=== PATIENT | male | born 1940 | race African-American/Black ===

== ENCOUNTER 2016-08-10 09:39 | Inpatient (IN) | payer OTHER, MEDICARE ==
[~2016-08-10] VITALS: Ht 188 cm; Wt 73.1 kg
[~2016-08-10 09:39] MED LIST: CLON.2 PO; COZA50TA PO; LORT10TA PO; NITR.4 SL; NORV10TA PO; SENN1TAB11 PO; [UNRECOGNIZED DRUG - CODE] XX
[2016-08-10 09:47] VITALS: BP 258/129; PULSE 78; RESP 28; TEMP 99.5; O2SAT 99
[2016-08-10] MEDS ORDERED: COZA50TA PO (09:55)
[2016-08-10] MEDS ORDERED: HYDR-3533 PO (09:55)
[2016-08-10] MEDS ORDERED: SENN1TAB2 PO (09:55)
[2016-08-10] MEDS ORDERED: CLON0.2T PO (09:55)
[2016-08-10] MEDS ORDERED: AMLO10 PO (09:55)
[2016-08-10] MEDS ORDERED: NITR1SUB3 SL (09:55)
[2016-08-10] MEDS ORDERED: MORPHINE SULFATE 4 MG/ML INJ IV PUSH ONE ×2 (10:30→12:15)
[2016-08-10] MEDS ORDERED: ONDANSETRON HCL 4 MG/2 ML VIAL IV PUSH ONE ×2 (10:30→12:00)
[2016-08-10] MEDS ORDERED: SODIUM CHLORIDE 0.9% FLUSH 5 ML FLUSH IVF PRN ×2 (10:30→19:30)
[2016-08-10 10:58] LABS: AUTOMATED NEUTROPHIL # 5.6 TH/MM3 (1.8-7.7); BASOPHIL % 0.5 % (0.0-2.0); EOSINOPHIL % 0.1 % (0.0-4.0); HEMATOCRIT 39.1 % (39.0-51.0); LYMPH % 5.8 % (9.0-44.0); LYMPHOCYTE # 0.4 TH/MM3 (1.0-4.8); MEAN CELL VOLUME 77.4 FL (80.0-100.0); MEAN CORPUSCULAR HEMOGLOBIN 25.7 PG (27.0-34.0); MEAN CORPUSCULAR HGB CONC 33.2 % (32.0-36.0); MONO % 3.9 % (0.0-8.0); NEUT % 89.7 % (16.0-70.0); PLATELET COUNT 174 TH/MM3 (150-450); RED BLOOD COUNT 5.06 MIL/MM3 (4.50-5.90); RED CELL DISTRIBUTION WIDTH 17.9 % (11.6-17.2); WHITE BLOOD COUNT 6.2 TH/MM3 (4.0-11.0)
[2016-08-10 10:59] LABS: HEMO FLAGS DIFF FINAL
[2016-08-10 11:10] LABS: APTT (PATIENT) 29.3 SEC (24.3-30.1); PROTHROMBIN TIME - PATIENT 10.6 SEC (9.8-11.6)
[2016-08-10 11:16] LABS: ANION GAP 8 MEQ/L (5-15); BICARBONATE 28.8 MEQ/L (21.0-32.0); BLOOD UREA NITROGEN 15 MG/DL (7-18); CHLORIDE 101 MEQ/L (98-107); GLOMERULAR FILTRATION RATE 53 ML/MIN (>89); MAGNESIUM 2.4 MG/DL (1.5-2.5); POTASSIUM 3.7 MEQ/L (3.5-5.1); SODIUM (NA) 138 MEQ/L (136-145)
[2016-08-10 11:21] LABS: CREATINE KINASE 117 U/L (39-308)
[2016-08-10 11:33] LABS: CKMB LESS THAN 0.5 NG/ML (0.5-3.6)
[2016-08-10 11:37] LABS: BLOOD, URINE SMALL (NEG); GLUCOSE,URINE TRACE mg/dL (NEG); KETONE, URINE NEG (NEG); NITRITE,URINE NEG (NEG); URINE COLOR LIGHT-YELLOW (YELLW/STRAW)
[2016-08-10 11:43] LABS: COMMENT (UR) CULT NOT INDICATED; CULTURE IF INDICATED CULT NOT INDICATED
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
[2016-08-10] MEDS ORDERED: PHENYLEPH/NS 1000 MCG/10 ML SYR IV ONE (12:00)
[2016-08-10] MEDS ORDERED: PROPOFOL 200 MG/20 ML AMP IV ONE (12:00)
[2016-08-10] MEDS ORDERED: LACTATED RINGER'S 1000 ML INJ 2,000 ML IV ONE (12:00)
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
[2016-08-10] MEDS ORDERED: SODIUM CHLOR 0.9% 1000 ML INJ 1,000 ML IV ONE (12:15)
[2016-08-10] MEDS ORDERED: ACETAMINOPHEN/HYDROcodone 325 MG/5 MG TAB PO PRN ×2 (12:30→19:30)
[2016-08-10] MEDS ORDERED: SODIUM CHLORIDE 0.9% FLUSH 5 ML FLUSH FLUSH PRN (12:30)
[2016-08-10] MEDS ORDERED: NALOXONE HCL 0.4 MG/ML AMP IV PRN (12:30)
[2016-08-10] MEDS ORDERED: MORPHINE SULFATE 4 MG/ML INJ IV PRN ×2 (12:30)
[2016-08-10] MEDS ORDERED: ACETAMINOPHEN 325 MG TAB PO PRN ×3 (12:30→19:30)
[2016-08-10] MEDS ORDERED: ACETAMINOPHEN/HYDROcodone 325 MG/7.5 MG TAB PO PRN (12:30)
[2016-08-10] MEDS: cloNIDine HCL 0.2 MG TAB PO SCH ×2 (12:56→22:15)
[2016-08-10] MEDS ORDERED: BISACODYL 10 MG SUPP PR PRN ×2 (13:00→19:30)
[2016-08-10] MEDS ORDERED: MAGNESIUM HYDROXIDE SUSP 30 ML CUP PO PRN (13:00)
[2016-08-10] MEDS ORDERED: SENNOSIDES 8.6 MG TAB PO PRN (13:00)
[2016-08-10] MEDS ORDERED: hydrALAZINE HCL 20 MG/ML VIAL IV PUSH PRN (13:00)
[2016-08-10] MEDS ORDERED: LOSARTAN 50 MG TAB PO SCH (13:00)
[2016-08-10] MEDS ORDERED: DOCUSATE SODIUM 100 MG CAP PO SCH (13:00)
[2016-08-10 13:04] VITALS: BP 239/129; PULSE 84; RESP 16; O2SAT 100
[2016-08-10] MEDS ORDERED: SODIUM CHLORIDE 0.9% IV SCH (14:30)
[2016-08-10] MEDS ORDERED: CLINDAMYCIN IV SCH (14:30)
[2016-08-10] MEDS ORDERED: VANCOMYCIN INJ 1,000 MG in SODIUM CHLOR 0.9% 250 ML INJ 250 ML IV SCH (14:30)
[2016-08-10 15:12] VITALS: O2SAT 100
[2016-08-10] MEDS ORDERED: CLINDAMYCIN PHOS 600 MG/4 ML VIAL ONE (15:41)
[2016-08-10] MEDS ORDERED: GENTAMICIN SULFATE 80 MG/2 ML VIAL ONE (15:41)
[2016-08-10] MEDS ORDERED: ONDANSETRON HCL 4 MG/2 ML VIAL IVP PRN ×2 (17:00→19:30)
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
--- NOTE | 2016-08-10 19:18 | PD.OP ---
cc: Estrada Nina MD Operative Report Date of Surgery: Aug 10, 2016 Preoperative Diagnosis: (1) Fracture of femoral neck, right Postoperative Diagnosis: (1) Fracture of femoral neck, right Procedure: Right bipolar hip arthroplasty Implants used: Depuy size 12/14 press fit femoral stem with a 54 bipolar cup and a standard neck length Anesthesia: Gen. Surgeon: Estrada Nina Marine Mechanic(s): Marilee Akhtar PA-C ([place]) The surgical procedure was assisted by my physician's events administrative assistant. Her presence was necessary throughout the case for manipulation and positioning of the surgical extremity. My PA was assisting me throughout the duration of this procedure. The skill set of the physician events administrative assistant was medically necessary to complete this procedure. During the surgical case the surgical instrument maker was working at the back table and the physician events administrative assistant was directly assisting me. Operation and Findings: Indications: This 76-year-old male fell injuring his right hip. The patient had pain and inability ambulate. He presented to [facility]. X-rays revealed a displaced right femoral neck fracture. Recommendations are therefore given for prosthetic replacement. Procedure and findings: The patient was taken to the operative suite and after undergoing an adequate level of general anesthesia was placed in the lateral decubitus position. Preoperative antibiotics consisted of vancomycin 1 g IV and clindamycin 900 mg IV. The right lower extremity was then prepped and draped in usual sterile fashion with alcohol, Hibiclens and ChloraPrep. A standard posterior lateral approach to the hip was made with incision centered over the greater trochanter. This was carried down through skin and subcutaneous tense tissue with a knife. Hemostasis was obtained with cautery. The iliotibial band was identified distally and the gluteus lupe fascia proximally. These were split longitudinally. This brought the greater trochanteric bursa into view which had hemorrhagic tissue present. The bursa was partially excised. The short external rotators were released from the posterior aspect of the femur up to the level of the piriformis. This was tagged. The sciatic nerve was palpable in the depths of the wound and avoided. A T capsulotomy incision was made. A joint hemarthrosis was evacuated. There was comminution of the femoral neck. The femoral head was removed and sized on the back table to a 54. A 54 trial was placed which gave good fit and fill. Attention was then focused on the proximal femur. A neck cut was made. The femur was then sequentially reamed and broached up to a size 12/14. With the broach in place trial reductions were completed. The standard neck length gave the best range of motion and stability with equalization of limb lengths. These components were therefore selected. The wound was thoroughly irrigated with pulse lavage. The size 12/14 stem was then impacted in the place. The 54 bipolar cup was then impacted onto the proximal aspect of the stem with a Fair taper fit. Reduction was easily accomplished and good range of motion and stability again noted. The wound was again thoroughly irrigated. Was closed in layers utilizing #1 Tycron on the posterior capsule, #1 Vicryl on the iliotibial band and gluteal lupe fascia, 0 Vicryl suture on the deep tissue, 2-0 Vicryl suture on the subcutaneous tense tissue and brea on the skin. Sterile dressings were applied, the patient was placed into an abduction pillow , transferred to the hospital bed and taken to the recovery room in stable condition. Estimated blood loss: 150 cc Complications: None Estrada Nina MD Aug 10, 2016 19:18
[2016-08-10] MEDS ORDERED: TEMAZEPAM 15 MG CAP PO PRN (19:30)
[2016-08-10] MEDS ORDERED: Post-op Orders (for Pharmacy) MISC XX ONE (19:30)
[2016-08-10] MEDS ORDERED: POVIDONE IODINE 10% SOLN 118 ML BOTTLE TOPICAL PRN (19:30)
[2016-08-10] MEDS ORDERED: ALUMINUM/MAGNESIUM/SIMETH 30 ML CUP PO PRN (19:30)
[2016-08-10] MEDS ORDERED: DO NOT ADM ANY ANTICOAGULANT DRUGS XX PRN (19:36)
[2016-08-10] MEDS ORDERED: fentaNYL CITRATE 250 MCG/5 ML AMP ONE (19:42)
[2016-08-10] MEDS: LACTATED RINGER'S 1000 ML INJ 1,000 ML IV SCH (19:45)
[2016-08-10] MEDS ORDERED: ENALAPRILAT 1.25 MG/ML VIAL ONE (19:47)
--- NOTE | 2016-08-10 20:50 | RADRPT ---
EXAM DATE/TIME: 08/10/2016 19:48 [facility] COMPARISON: No previous studies available for comparison. INDICATIONS : Post op right hip. MEDICAL HISTORY : None. SURGICAL HISTORY : None. ENCOUNTER: Initial ACUITY: 1 day PAIN SCORE: Non-responsive. LOCATION: Right hip. FINDINGS: AP right hip reveals hip replacement. Skin brea laterally. Air in soft tissues. No complications i dentified. CONCLUSION: 1. Postoperative right total hip replacement. Robby Yo MD on August 10, 2016 at 20:48 Board Certified Radiologist. This report was verified electronically.
[2016-08-10] MEDS ORDERED: SODIUM CHLORIDE 0.9% FLUSH 5 ML FLUSH FLUSH SCH (21:00)
[2016-08-10] MEDS: CLINDAMYCIN INJ 900 MG in SODIUM CHLORIDE 0.9% INJ 100 ML IV SCH (21:10)
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
[2016-08-10 22:00] VITALS: BP 164/90; PULSE 62; RESP 17; TEMP 97.3; O2SAT 100
[2016-08-10] MEDS: MORPHINE SULFATE 8 MG/ML INJ IV PUSH PRN (22:21)
[2016-08-10] MEDS: SODIUM CHLORIDE 0.9% FLUSH 5 ML FLUSH IVF SCH (22:22)
[2016-08-11] VITALS (8 sets, daily range): BP systolic 104–170; BP diastolic 62–82; PULSE 71–73; RESP 16–18; TEMP 97.5–101.2; O2SAT 98–100
[2016-08-11] MEDS: LACTATED RINGER'S 1000 ML INJ 1,000 ML IV SCH ×3 (05:07→23:48)
[2016-08-11] MEDS: ACETAMINOPHEN/HYDROcodone 325 MG/5 MG TAB PO PRN ×2 (05:09→09:38)
[2016-08-11] MEDS: CLINDAMYCIN INJ 900 MG in SODIUM CHLORIDE 0.9% INJ 100 ML IV SCH ×2 (05:10→12:30)
[2016-08-11 05:13] LABS: AUTOMATED NEUTROPHIL # 4.2 TH/MM3 (1.8-7.7); BASOPHIL % 0.5 % (0.0-2.0); EOSINOPHIL # 0.1 TH/MM3 (0-0.4); EOSINOPHIL % 1.3 % (0.0-4.0); HEMO FLAGS DIFF FINAL; LYMPH % 10.6 % (9.0-44.0); LYMPHOCYTE # 0.6 TH/MM3 (1.0-4.8); MEAN CORPUSCULAR HEMOGLOBIN 25.6 PG (27.0-34.0); MEAN CORPUSCULAR HGB CONC 32.8 % (32.0-36.0); MONO % 8.9 % (0.0-8.0); NEUT % 78.7 % (16.0-70.0); PLATELET COUNT 114 TH/MM3 (150-450); RED BLOOD COUNT 3.85 MIL/MM3 (4.50-5.90); RED CELL DISTRIBUTION WIDTH 17.9 % (11.6-17.2); WHITE BLOOD COUNT 5.3 TH/MM3 (4.0-11.0)
[2016-08-11 05:53] LABS: BICARBONATE 23.5 MEQ/L (21.0-32.0); POTASSIUM 3.7 MEQ/L (3.5-5.1)
[2016-08-11] MEDS: SODIUM CHLORIDE 0.9% FLUSH 5 ML FLUSH IVF SCH ×2 (09:00→23:39)
[2016-08-11] MEDS: cloNIDine HCL 0.2 MG TAB PO SCH ×2 (09:37→23:47)
[2016-08-11] MEDS: MAGNESIUM HYDROXIDE SUSP 30 ML CUP PO PRN (09:43)
[2016-08-11] MEDS ORDERED: ENOXAPARIN SODIUM 40 MG/0.4 ML SYRINGE SQ SCH (10:00)
--- NOTE | 2016-08-11 12:40 | PD.ORT.PN ---
Subjective Post Op Day #: 1 Subjective Remarks Pt laying comfortably in bed, awake and answering questions appropriately. He complains of minimal right hip pain and admits he had a good night sleep. No other complaints noted at this time. No family at bedside this morning. Objective Vitals Vital Signs Date Time Temp Pulse Resp B/P Pulse Ox O2 Delivery O2 Flow Rate FiO2 08/11/16 08:00 100.7 73 18 149/78 99 08/11/16 05:00 100.8 154/72 08/11/16 04:00 101.2 73 18 170/82 98 08/10/16 22:00 97.3 62 17 164/90 100 08/10/16 21:15 58 15 146/89 99 Nasal Cannula 2 08/10/16 21:00 98.1 58 16 145/57 98 Nasal Cannula 2 08/10/16 20:45 55 16 136/76 97 Nasal Cannula 2 08/10/16 20:30 57 12 150/88 97 Nasal Cannula 2 08/10/16 20:15 56 12 152/91 97 Nasal Cannula 2 08/10/16 20:00 60 14 155/97 98 Nasal Cannula 2 08/10/16 19:45 65 16 189/103 98 Nasal Cannula 3 08/10/16 19:34 97.3 60 14 171/97 96 Nasal Cannula 3 08/10/16 15:12 100 21 08/10/16 13:04 84 16 239/129 100 I/O 08/10/16 08/10/16 08/10/16 08/11/16 08/11/16 08/11/16 07:00 15:00 23:00 07:00 15:00 23:00 Intake Total 1400 ml 240 ml Output Total 400 ml 450 ml Balance 1000 ml -210 ml Intake Oral 240 ml IV Total 100 ml Other 1300 ml Output Urine Total 200 ml 450 ml Estimated Blood Loss 200 ml # Bowel Movements 0 Result Diagram: 08/11/16 0444 08/11/16 0444 Imaging Last 48 hours Impressions Chest X-Ray 08/10/16 1024 Signed Impressions: Service Date/Time: Wednesday, August 10, 2016 11:06 - CONCLUSION: Thoracic stent graft in good position, otherwise negative. Deniz Mccann MD FACR Hip and Pelvis X-Ray 08/10/16 0000 Signed Impressions: Service Date/Time: Wednesday, August 10, 2016 11:06 - CONCLUSION: Basal cervical fracture right femoral neck. Deniz Mccann MD FACR Hip X-Ray 08/10/16 0000 Signed Impressions: Service Date/Time: Wednesday, August 10, 2016 19:48 - CONCLUSION: 1. Postoperative right total hip replacement. Robby Yo MD Procedures Right bipolar hip arthroplasty (08/10/16) Objective Remarks RLE: Dressing dry and intact. Mild tenderness and swelling over incision site. No erythema or ecchymosis noted. Skin is warm. He is able to move his ankle and toes freely. Good cap refill. No calf pain. Negative Familia's sign. Neurovascular intact. Abductor pillow in place. Assessment & Plan Ortho Post Op Day #: 1 Problem List: (1) Fracture of femoral neck, right (2) Hypertension (3) Thoracic aortic aneurysm Assessment and Plan Ortho status stable POD #1. Progress rehab. Continue Lovenox for DVT prophylaxis , pain management and bowel regimen. Discharge planning. Marilee Akhtar Aug 11, 2016 12:40
--- NOTE | 2016-08-11 14:08 | HHI.PR ---
Subjective Remarks Mr. 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 no dysuria or abdominal pain diarrhea or constipation or cough Objective Vitals Vital Signs Date Time Temp Pulse Resp B/P Pulse Ox O2 Delivery O2 Flow Rate FiO2 08/11/16 12:00 97.8 71 18 104/64 100 08/11/16 08:00 100.7 73 18 149/78 99 08/11/16 05:00 100.8 154/72 08/11/16 04:00 101.2 73 18 170/82 98 08/10/16 22:00 97.3 62 17 164/90 100 08/10/16 21:15 58 15 146/89 99 Nasal Cannula 2 08/10/16 21:00 98.1 58 16 145/57 98 Nasal Cannula 2 08/10/16 20:45 55 16 136/76 97 Nasal Cannula 2 08/10/16 20:30 57 12 150/88 97 Nasal Cannula 2 08/10/16 20:15 56 12 152/91 97 Nasal Cannula 2 08/10/16 20:00 60 14 155/97 98 Nasal Cannula 2 08/10/16 19:45 65 16 189/103 98 Nasal Cannula 3 08/10/16 19:34 97.3 60 14 171/97 96 Nasal Cannula 3 08/10/16 15:12 100 21 I/O 08/10/16 08/10/16 08/10/16 08/11/16 08/11/16 08/11/16 07:00 15:00 23:00 07:00 15:00 23:00 Intake Total 1400 ml 240 ml Output Total 400 ml 450 ml Balance 1000 ml -210 ml Intake Oral 240 ml IV Total 100 ml Other 1300 ml Output Urine Total 200 ml 450 ml Estimated Blood Loss 200 ml # Bowel Movements 0 Result Diagram: 08/11/16 0444 08/11/16 0444 Imaging Last Impressions Chest X-Ray 08/10/16 1024 Signed Impressions: Service Date/Time: Wednesday, August 10, 2016 11:06 - CONCLUSION: Thoracic stent graft in good position, otherwise negative. Deniz Mccann MD FACR Hip and Pelvis X-Ray 08/10/16 0000 Signed Impressions: Service Date/Time: Wednesday, August 10, 2016 11:06 - CONCLUSION: Basal cervical fracture right femoral neck. Deniz Mccann MD FACR Hip X-Ray 08/10/16 0000 Signed Impressions: Service Date/Time: Wednesday, August 10, 2016 19:48 - CONCLUSION: 1. Postoperative right total hip replacement. Robby Yo MD Objective Remarks GENERAL: This is a well-nourished, well-developed patient, in no apparent distress. SKIN: No rashes, warm and dry HEAD: Atraumatic. Normocephalic. EYES: Pupils equal round and reactive. Extraocular motions intact. No scleral icterus. ENT: Nose without bleeding, or drainage, Airway patent. NECK: Trachea midline. Supple CARDIOVASCULAR: Regular rate and rhythm without murmurs, gallops, or rubs. RESPIRATORY: Fair air entry bilaterally. No wheezes, rales, or rhonchi. GASTROINTESTINAL: Abdomen soft, non-tender, nondistended. Positive bowel sounds MUSCULOSKELETAL: Extremities without clubbing, cyanosis, or edema. Pedal pulses appreciated NEUROLOGICAL: Awake and alert. Moves all extremity. Normal speech.no focal neurological deficit A/P Problem List: (1) Fracture of femoral neck, right ICD Code: S72.001A Status: Acute Assessment and Plan 76 years old male with history of hypertension and aortic aneurysm repair in the past admitted with -Fracture of the right femoral neck status post fall: Start on pain management, orthopedic consulted, status post surgical repair, postop management per protocol, DVT prophylaxis with Lovenox -Acute anemia hemoglobin dropped from 13-9.9>> mostly post op, repeat H&H in a.m. -Spiking fever 101.2 last night>> mostly post op, no dysuria or cough or other sign of infection, will continue monitoring -Uncontrolled hypertension: Hold losartan due to MECCA, continue amlodipine, add clonidine, hydralazine as needed -I MECCA versus CKD: Creatinine decreased from 1.56-1.47 Hold losartan, avoid nephrotoxins, continue iv fluid, monitor BMP Nash Pratt MD Aug 11, 2016 14:08
[2016-08-11] MEDS: ENOXAPARIN SODIUM 40 MG/0.4 ML SYRINGE SQ SCH (17:58)
[2016-08-11] MEDS: MORPHINE SULFATE 8 MG/ML INJ IV PUSH PRN (23:38)
[2016-08-11] MEDS: MULTIVITAMINS/MINERALS THERAPEUTIC TAB PO SCH (23:47)
[2016-08-11] MEDS: DOCUSATE SODIUM 100 MG CAP PO SCH (23:47)
[2016-08-12] VITALS (7 sets, daily range): BP systolic 122–160; BP diastolic 66–81; PULSE 62–67; RESP 16–18; TEMP 96.4–99.9; O2SAT 95–100
[2016-08-12] MEDS: MORPHINE SULFATE 8 MG/ML INJ IV PUSH PRN ×2 (06:30→16:35)
--- NOTE | 2016-08-12 07:31 | PD.ORT.PN ---
Subjective Post Op Day #: 2 Pain Scale: 4 Subjective Remarks The patient is awake alert and answers questions appropriately. He currently is not in the abduction pillow and his leg is internally rotated and slightly abducted. He is complaining of knee pain. He has minimal hip discomfort. Objective Vitals Vital Signs Date Time Temp Pulse Resp B/P Pulse Ox O2 Delivery O2 Flow Rate FiO2 08/12/16 04:00 99.9 63 16 142/72 95 08/12/16 00:00 99.5 63 16 124/67 99 08/11/16 19:12 99.2 73 16 109/62 08/11/16 16:14 97.5 71 16 130/68 99 08/11/16 15:20 99 21 08/11/16 12:00 97.8 71 18 104/64 100 08/11/16 10:30 99 Nasal Cannula 21 08/11/16 08:00 100.7 73 18 149/78 99 I/O 08/11/16 08/11/16 08/11/16 08/12/16 08/12/16 08/12/16 07:00 15:00 23:00 07:00 15:00 23:00 Intake Total 240 ml 676 ml 240 ml 240 ml Output Total 450 ml 250 ml Balance -210 ml 676 ml 240 ml -10 ml Intake Oral 240 ml 240 ml 240 ml IV Total 676 ml Output Urine Total 450 ml 250 ml Bladder Scan Volume Amount 30 ml # Voids 0 # Bowel Movements 0 0 0 Result Diagram: 08/11/16 0444 08/11/16 0444 Imaging Last 48 hours Impressions Chest X-Ray 08/10/16 1024 Signed Impressions: Service Date/Time: Wednesday, August 10, 2016 11:06 - CONCLUSION: Thoracic stent graft in good position, otherwise negative. Deniz Mccann MD FACR Hip and Pelvis X-Ray 08/10/16 0000 Signed Impressions: Service Date/Time: Wednesday, August 10, 2016 11:06 - CONCLUSION: Basal cervical fracture right femoral neck. Deniz Mccann MD FACR Hip X-Ray 08/10/16 0000 Signed Impressions: Service Date/Time: Wednesday, August 10, 2016 19:48 - CONCLUSION: 1. Postoperative right total hip replacement. Robby Yo MD Procedures Right bipolar hip arthroplasty (08/10/16) Objective Remarks RLE: Dressing dry and intact. Mild tenderness and swelling over incision site. No erythema or ecchymosis noted. Skin is warm. He is able to move his ankle and toes freely. Good cap refill. No calf pain. Negative Familia's sign. The right lower extremity was passively placed back in neutral position. His leg lengths were equal. He has a moderate knee effusion. This was noted preoperatively. Neurovascular intact. Assessment & Plan Ortho Post Op Day #: 2 Problem List: (1) Fracture of femoral neck, right (2) Hypertension (3) Thoracic aortic aneurysm Assessment and Plan Ortho status stable POD #2. Progress rehab. Continue Lovenox for DVT prophylaxis , pain management and bowel regimen. Should be ready for discharge to rehabilitation tomorrow. Estrada Nina MD Aug 12, 2016 07:31
[2016-08-12] MEDS ORDERED: ENOX40P SQ (07:32)
[2016-08-12] MEDS ORDERED: HYDR-3516 PO (07:33)
[2016-08-12] MEDS ORDERED: WALKER WHEELS/F1 MIS (07:47)
[2016-08-12] MEDS ORDERED: MISC-163 (07:47)
[2016-08-12 08:30] LABS: HEMATOCRIT 26.1 % (39.0-51.0); REVIEW FLAG FINAL
[2016-08-12] MEDS: DOCUSATE SODIUM 100 MG CAP PO SCH ×2 (08:43→22:26)
[2016-08-12] MEDS: MAGNESIUM HYDROXIDE SUSP 30 ML CUP PO PRN (08:43)
[2016-08-12] MEDS: MULTIVITAMINS/MINERALS THERAPEUTIC TAB PO SCH ×2 (08:43→22:26)
[2016-08-12] MEDS: cloNIDine HCL 0.2 MG TAB PO SCH ×2 (08:43→22:26)
[2016-08-12] MEDS: ACETAMINOPHEN/HYDROcodone 325 MG/5 MG TAB PO PRN ×3 (08:47→22:27)
[2016-08-12] MEDS: SODIUM CHLORIDE 0.9% FLUSH 5 ML FLUSH IVF SCH ×2 (09:00→22:27)
[2016-08-12] MEDS: LACTATED RINGER'S 1000 ML INJ 1,000 ML IV SCH ×2 (11:18→21:18)
--- NOTE | 2016-08-12 15:10 | HHI.PR ---
Subjective Remarks patient doing well with physical therapy No fever last 24 hours Objective Vitals Vital Signs Date Time Temp Pulse Resp B/P Pulse Ox O2 Delivery O2 Flow Rate FiO2 08/12/16 12:00 96.4 67 18 127/69 99 08/12/16 08:00 99.5 65 18 160/79 100 08/12/16 04:00 99.9 63 16 142/72 95 08/12/16 00:00 99.5 63 16 124/67 99 08/11/16 19:12 99.2 73 16 109/62 08/11/16 16:14 97.5 71 16 130/68 99 08/11/16 15:20 99 21 I/O 08/11/16 08/11/16 08/11/16 08/12/16 08/12/16 08/12/16 07:00 15:00 23:00 07:00 15:00 23:00 Intake Total 240 ml 676 ml 240 ml 240 ml Output Total 450 ml 600 ml Balance -210 ml 676 ml 240 ml -360 ml Intake Oral 240 ml 240 ml 240 ml IV Total 676 ml Output Urine Total 450 ml 600 ml Bladder Scan Volume Amount 30 ml # Voids 0 # Bowel Movements 0 0 0 Result Diagram: 08/12/16 0725 08/11/16 0444 Objective Remarks GENERAL: This is a well-nourished, well-developed patient, in no apparent distress. SKIN: No rashes, warm and dry HEAD: Atraumatic. Normocephalic. EYES: Pupils equal round and reactive. Extraocular motions intact. No scleral icterus. ENT: Nose without bleeding, or drainage, Airway patent. NECK: Trachea midline. Supple CARDIOVASCULAR: Regular rate and rhythm without murmurs, gallops, or rubs. RESPIRATORY: Fair air entry bilaterally. No wheezes, rales, or rhonchi. GASTROINTESTINAL: Abdomen soft, non-tender, nondistended. Positive bowel sounds MUSCULOSKELETAL: Extremities without clubbing, cyanosis, or edema. Pedal pulses appreciated NEUROLOGICAL: Awake and alert. Moves all extremity. Normal speech.no focal neurological deficit A/P Problem List: (1) Fracture of femoral neck, right ICD Code: S72.001A Status: Acute Assessment and Plan 76 years old male with history of hypertension and aortic aneurysm repair in the past admitted with -Fracture of the right femoral neck status post fall: Start on pain management, orthopedic consulted, status post surgical repair, postop management per protocol, DVT prophylaxis with Lovenox -Acute anemia hemoglobin dropped from 13-9.9>> mostly post op, repeat H&H in a.m. -Spiking fever 101.2 >> resolved for the last 24 hours mostly post op, no dysuria or cough or other sign of infection, will continue monitoring -Uncontrolled hypertension: Improved control Hold losartan due to MECCA, continue amlodipine, add clonidine, hydralazine as needed -I MECCA versus CKD: Creatinine trending down 1.56-1.47 Hold losartan, avoid nephrotoxins, continue iv fluid, BMP in a.m. Nash Pratt MD Aug 12, 2016 15:10
[2016-08-12] MEDS: ENOXAPARIN SODIUM 40 MG/0.4 ML SYRINGE SQ SCH (17:46)
--- NOTE | 2016-08-12 23:43 | EKG ---
Date Performed: 08/10/2016 Time Performed: 15:43:39 PTAGE: 76 years EKG: ECTOPIC ATRIAL RHYTHM WITH SHORT DE INTERVAL LEFT VENTRICULAR HYPERTROPHY AND ST-T CHANGE A BNORMAL ECG PREVIOUS TRACING : 05/23/2013 21.26 Compared to the previous tracing, LVH with secondary armas es now noted DOCTOR: Geovani Lema Interpretating Date/Time 08/12/2016 23:41:33
[2016-08-13] VITALS (8 sets, daily range): BP systolic 130–183; BP diastolic 71–90; PULSE 48–66; RESP 16–21; TEMP 96.3–98.7; O2SAT 94–99
[2016-08-13] MEDS: MORPHINE SULFATE 8 MG/ML INJ IV PUSH PRN (00:47)
[2016-08-13] MEDS: ACETAMINOPHEN/HYDROcodone 325 MG/5 MG TAB PO PRN ×5 (02:24→21:52)
--- NOTE | 2016-08-13 06:53 | PD.ORT.PN ---
Subjective Post Op Day #: 1 Subjective Remarks Pt laying comfortably in bed, awake and answering questions appropriately. He complains of minimal right hip pain and right knee pain. He admits he injured his right knee in 1961 with a softball injury. Hip abductor pillow was not in place - I placed it back on the patient myself. No other complaints noted at this time. No family at bedside this morning. Objective Vitals Vital Signs Date Time Temp Pulse Resp B/P Pulse Ox O2 Delivery O2 Flow Rate FiO2 08/13/16 04:28 97.0 56 18 144/71 97 08/13/16 00:21 98.7 62 18 130/72 98 08/12/16 20:31 96.7 62 18 122/66 97 08/12/16 19:25 99.0 65 18 157/81 96 08/12/16 18:32 21 08/12/16 16:03 96.7 62 18 122/66 08/12/16 12:00 96.4 67 18 127/69 99 08/12/16 08:00 99.5 65 18 160/79 100 I/O 08/12/16 08/12/16 08/12/16 08/13/16 08/13/16 08/13/16 07:00 15:00 23:00 07:00 15:00 23:00 Intake Total 240 ml 1200 ml 600 ml Output Total 600 ml 250 ml Balance -360 ml 1200 ml 350 ml Intake Oral 240 ml 1200 ml 600 ml Output Urine Total 600 ml 250 ml Bladder Scan Volume Amount 30 ml # Voids 2 1 # Bowel Movements 0 0 0 Result Diagram: 08/12/16 0725 08/11/16 0444 Imaging Last 48 hours Impressions Chest X-Ray 08/10/16 1024 Signed Impressions: Service Date/Time: Wednesday, August 10, 2016 11:06 - CONCLUSION: Thoracic stent graft in good position, otherwise negative. Deniz Mccann MD FACR Hip and Pelvis X-Ray 08/10/16 0000 Signed Impressions: Service Date/Time: Wednesday, August 10, 2016 11:06 - CONCLUSION: Basal cervical fracture right femoral neck. Deniz Mccann MD FACR Hip X-Ray 08/10/16 0000 Signed Impressions: Service Date/Time: Wednesday, August 10, 2016 19:48 - CONCLUSION: 1. Postoperative right total hip replacement. Robby Yo MD Procedures Right bipolar hip arthroplasty (08/10/16) Objective Remarks RLE: Dressing dry and intact. Mild tenderness and swelling over incision site. No erythema or ecchymosis noted. Skin is warm. He is able to move his ankle and toes freely. Good cap refill. No calf pain. Negative Familia's sign. The right lower extremity was passively placed back in neutral position. His leg lengths were equal. He has a moderate knee effusion. This was noted preoperatively. Neurovascular intact. Assessment & Plan Ortho Post Op Day #: 3 Problem List: (1) Fracture of femoral neck, right (2) Hypertension (3) Thoracic aortic aneurysm Assessment and Plan Ortho status stable POD #3. Progress rehab. Continue Lovenox for DVT prophylaxis , pain management and bowel regimen. Should be ready for discharge to rehabilitation today. Marilee Akhtar Aug 13, 2016 06:53
[2016-08-13] MEDS: LACTATED RINGER'S 1000 ML INJ 1,000 ML IV SCH ×2 (07:18→07:48)
[2016-08-13] MEDS: MAGNESIUM HYDROXIDE SUSP 30 ML CUP PO PRN (07:42)
--- NOTE | 2016-08-13 07:42 | HHI.DS ---
Discharge Summary Admission Date Aug 10, 2016 at 13:06 Discharge Date: Aug 13, 2016 Admitting Diagnosis Right Femoral Neck Fracture, s/p Bipolar Hip Arthroplasty Diagnosis: (1) Fracture of femoral neck, right Diagnosis: Principal (2) Hypertension (3) Thoracic aortic aneurysm Procedures Right bipolar hip arthroplasty (08/10/16) Brief History This is a 76 year old male patient presented the emergency room on 08/10/16 by EMS called by his since he was complaining of right hip pain. His says that at around 4 in the morning he slipped and fell in the kitchen when he had gone to get some water. He was unable to get up and bear weight on his right leg. Prior to the fall the patient did have limited ambulation and utilized a cane. Admitted to prior right knee injury in 1961. No other complaints noted. CBC/BMP: 08/12/16 0725 08/11/16 0444 Significant Findings Laboratory Tests Test 08/10/16 08/10/16 08/11/16 08/12/16 10:43 11:20 04:44 07:25 Mean Corpuscular Volume 77.4 FL 78.0 FL (80.0-100.0) (80.0-100.0) Mean Corpuscular Hemoglobin 25.7 PG 25.6 PG (27.0-34.0) (27.0-34.0) Red Cell Distribution Width 17.9 % 17.9 % (11.6-17.2) (11.6-17.2) Neutrophils (%) (Auto) 89.7 % 78.7 % (16.0-70.0) (16.0-70.0) Lymphocytes (%) (Auto) 5.8 % (9.0-44.0) Lymphocytes # (Auto) 0.4 TH/MM3 0.6 TH/MM3 (1.0-4.8) (1.0-4.8) Creatinine 1.56 MG/DL 1.47 MG/DL (0.60-1.30) (0.60-1.30) Estimat Glomerular Filtration 53 ML/MIN (>89) 57 ML/MIN (>89) Rate Random Glucose 141 MG/DL 117 MG/DL (74-106) (74-106) Creatine Kinase MB LESS THAN 0.5 NG/ML (0.5-3.6) Troponin I LESS THAN 0.02 NG/ML (0.02-0.05) Urine Protein 30 mg/dL (NEG-TRACE) Urine Occult Blood SMALL (NEG) Urine RBC 10 /hpf (0-3) Red Blood Count 3.85 MIL/MM3 (4.50-5.90) Hemoglobin 9.9 GM/DL 9.0 GM/DL (13.0-17.0) (13.0-17.0) Hematocrit 30.0 % 26.1 % (39.0-51.0) (39.0-51.0) Platelet Count 114 TH/MM3 (150-450) Monocytes (%) (Auto) 8.9 % (0.0-8.0) Chloride Level 108 MEQ/L (98-107) Blood Urea Nitrogen 19 MG/DL (7-18) Calcium Level 8.1 MG/DL (8.5-10.1) PE at Discharge RLE: Dressing dry and intact. Mild tenderness and swelling over incision site. No erythema or ecchymosis noted. Skin is warm. He is able to move his ankle and toes freely. Good cap refill. No calf pain. Negative Familia's sign. His leg lengths were equal. He has a moderate knee effusion. This was noted preoperatively. Neurovascular intact. Hospital Course Patient presented to [facility] department after slip and fall incident at home. He was evaluated by ER staff for possible right hip fracture. Evaluation and x-rays revealed right femoral neck fracture. Patient and agreed to move forward with planned surgical treatment. He underwent a right bipolar hip arthroplasty procedure by Dr Nina. He was given antibiotics pre- operatively and post operatively via IV. He was given Lovenox and SCDs for DVT prophylaxis. He was evaluated and treated by physical therapy, including gait training, during his hospital stay. Patient will be discharged in good condition. He will be discharged to rehab center for further care. Pt Condition on Discharge: Good Discharge Disposition: Rehab Inpatient Discharge Instructions Diet Instructions: As Tolerated, No Restrictions, High Fiber Diet Activities You Can Perform: Weight Bearing as Kaden Activities to Avoid: Lifting/Bending Marilee Akhtar Aug 13, 2016 07:42
[2016-08-13] MEDS: DOCUSATE SODIUM 100 MG CAP PO SCH ×2 (07:43→21:51)
[2016-08-13] MEDS: SODIUM CHLORIDE 0.9% FLUSH 5 ML FLUSH IVF SCH ×2 (07:43→21:53)
[2016-08-13] MEDS: MULTIVITAMINS/MINERALS THERAPEUTIC TAB PO SCH ×2 (07:43→21:51)
[2016-08-13] MEDS: cloNIDine HCL 0.2 MG TAB PO SCH ×2 (07:43→21:52)
[2016-08-13 07:54] LABS: BICARBONATE 27.9 MEQ/L (21.0-32.0); POTASSIUM 4.4 MEQ/L (3.5-5.1)
[2016-08-13 10:36] LABS: HEMATOCRIT 25.3 % (39.0-51.0); REVIEW FLAG FINAL
[2016-08-13] MEDS: SODIUM CHLOR 0.9% 1000 ML INJ 1,000 ML IV SCH (11:43)
--- NOTE | 2016-08-13 11:53 | HHI.PR ---
Subjective Remarks Follow-up anemia, acute kidney injury. Patient is reporting right hip pain. Currently 01/11. Denies lightheadedness, dizziness, chest pain, dyspnea. Objective Vitals Vital Signs Date Time Temp Pulse Resp B/P Pulse Ox O2 Delivery O2 Flow Rate FiO2 08/13/16 10:48 48 08/13/16 07:49 60 08/13/16 07:30 97.6 66 16 183/90 99 08/13/16 04:28 97.0 56 18 144/71 97 08/13/16 00:21 98.7 62 18 130/72 98 08/12/16 20:31 96.7 62 18 122/66 97 08/12/16 19:25 99.0 65 18 157/81 96 08/12/16 18:32 21 08/12/16 16:03 96.7 62 18 122/66 08/12/16 12:00 96.4 67 18 127/69 99 I/O 08/12/16 08/12/16 08/12/16 08/13/16 08/13/16 08/13/16 07:00 15:00 23:00 07:00 15:00 23:00 Intake Total 240 ml 1200 ml 600 ml 240 ml Output Total 600 ml 250 ml Balance -360 ml 1200 ml 350 ml 240 ml Intake Oral 240 ml 1200 ml 600 ml 240 ml Output Urine Total 600 ml 250 ml Bladder Scan Volume Amount 30 ml # Voids 2 1 1 # Bowel Movements 0 0 0 Result Diagram: 08/13/16 1004 08/13/16 0535 Imaging Last Impressions Chest X-Ray 08/10/16 1024 Signed Impressions: Service Date/Time: Wednesday, August 10, 2016 11:06 - CONCLUSION: Thoracic stent graft in good position, otherwise negative. Deniz Mccann MD FACR Hip and Pelvis X-Ray 08/10/16 0000 Signed Impressions: Service Date/Time: Wednesday, August 10, 2016 11:06 - CONCLUSION: Basal cervical fracture right femoral neck. Deniz Mccann MD FACR Hip X-Ray 08/10/16 0000 Signed Impressions: Service Date/Time: Wednesday, August 10, 2016 19:48 - CONCLUSION: 1. Postoperative right total hip replacement. Robby Yo MD Objective Remarks General: Elderly male in no acute distress. Heart: Regular rate and rhythm. No murmur. Lungs: Clear to auscultation bilaterally. No wheezes, rales, or rhonchi. Breathing is nonlabored. Abdomen: Soft, nontender, nondistended. Extremities: No lower extremity edema. Psych: Alert and oriented. Procedures 08/10/16 right bipolar hip arthroplasty Urinary Catheter: No Vascular Central Line Catheter: No A/P Problem List: (1) Fracture of femoral neck, right ICD Code: S72.001A Status: Acute (2) Hypertension ICD Code: I10 Status: Chronic (3) Anemia ICD Code: D64.9 Status: Acute (4) Acute kidney injury ICD Code: N17.9 Status: Acute Assessment and Plan 1. Right femoral neck fracture: Status post right hip arthroplasty, POD #3. Appreciate orthopedic surgery management. Continue pain control, bowel regimen, physical therapy. 2. Postoperative anemia, likely secondary to blood loss: Monitor H&H. Transfuse if necessary. 3. Acute kidney injury: Start IV fluids. Monitor BUN and creatinine. 4. Fever: Resolved. No other apparent signs of infection at this time. 5. DVT prophylaxis: Lovenox. Discharge Planning Possible discharge tomorrow if hemoglobin stable. Gaurang Russell MD Aug 13, 2016 11:53
[2016-08-13] MEDS: ENOXAPARIN SODIUM 40 MG/0.4 ML SYRINGE SQ SCH (17:22)
[2016-08-13 17:46] LABS: HEMATOCRIT 28.1 % (39.0-51.0); REVIEW FLAG FINAL
[2016-08-14] VITALS (10 sets, daily range): BP systolic 123–187; BP diastolic 63–92; PULSE 60–70; RESP 16–20; TEMP 97.5–98.7; O2SAT 94–100
[2016-08-14] MEDS: ACETAMINOPHEN/HYDROcodone 325 MG/5 MG TAB PO PRN ×4 (04:06→17:34)
[2016-08-14 06:52] LABS: BICARBONATE 26.1 MEQ/L (21.0-32.0); POTASSIUM 3.8 MEQ/L (3.5-5.1)
--- NOTE | 2016-08-14 07:24 | PD.ORT.PN ---
Subjective Post Op Day #: 4 Subjective Remarks Pt laying comfortably in bed, awake and answering questions appropriately. He complains of minimal right hip pain and right knee pain. Encouraged use of abductor pillow. No other complaints noted at this time. No family at bedside this morning. Medical team is managing anemia at this time. Objective Vitals Vital Signs Date Time Temp Pulse Resp B/P Pulse Ox O2 Delivery O2 Flow Rate FiO2 08/14/16 04:23 97.9 70 20 174/90 94 08/14/16 00:28 98.6 62 20 123/63 95 08/13/16 20:26 96.3 63 21 165/77 94 08/13/16 20:13 21 08/13/16 16:00 97.9 56 20 153/72 97 08/13/16 12:30 97.0 58 16 133/76 98 08/13/16 10:48 48 08/13/16 07:49 60 08/13/16 07:30 97.6 66 16 183/90 99 I/O 08/13/16 08/13/16 08/13/16 08/14/16 08/14/16 08/14/16 07:00 15:00 23:00 07:00 15:00 23:00 Intake Total 240 ml 240 ml 360 ml 360 ml Balance 240 ml 240 ml 360 ml 360 ml Intake Oral 240 ml 240 ml 360 ml 360 ml # Voids 1 1 1 1 # Bowel Movements 0 0 0 Result Diagram: 08/13/16 1703 08/14/16 0531 Imaging Last 48 hours Impressions Chest X-Ray 08/10/16 1024 Signed Impressions: Service Date/Time: Wednesday, August 10, 2016 11:06 - CONCLUSION: Thoracic stent graft in good position, otherwise negative. Deniz Mccann MD FACR Hip and Pelvis X-Ray 08/10/16 0000 Signed Impressions: Service Date/Time: Wednesday, August 10, 2016 11:06 - CONCLUSION: Basal cervical fracture right femoral neck. Deniz Mccann MD FACR Hip X-Ray 08/10/16 0000 Signed Impressions: Service Date/Time: Wednesday, August 10, 2016 19:48 - CONCLUSION: 1. Postoperative right total hip replacement. Robby Yo MD Procedures Right bipolar hip arthroplasty (08/10/16) Objective Remarks RLE: Dressing dry and intact. Mild tenderness and swelling over incision site. No erythema or ecchymosis noted. Skin is warm. He is able to move his ankle and toes freely. Good cap refill. No calf pain. Negative Familia's sign. His leg lengths were equal. He has a moderate knee effusion. This was noted preoperatively. Neurovascular intact. Assessment & Plan Ortho Post Op Day #: 4 Problem List: (1) Fracture of femoral neck, right (2) Hypertension (3) Thoracic aortic aneurysm Assessment and Plan Ortho status stable POD #4. Progress rehab. Continue Lovenox for DVT prophylaxis , pain management and bowel regimen. Ready for discharge to rehab. Appreciate medical team's involvement in patient's care. Marilee Akhtar Aug 14, 2016 07:24
[2016-08-14 07:26] LABS: AUTOMATED NEUTROPHIL # 3.6 TH/MM3 (1.8-7.7); BASOPHIL % 0.8 % (0.0-2.0); EOSINOPHIL # 0.2 TH/MM3 (0-0.4); EOSINOPHIL % 3.8 % (0.0-4.0); HEMATOCRIT 23.7 % (39.0-51.0); HEMO FLAGS DIFF FINAL; LYMPH % 15.7 % (9.0-44.0); LYMPHOCYTE # 0.8 TH/MM3 (1.0-4.8); MEAN CORPUSCULAR HEMOGLOBIN 25.5 PG (27.0-34.0); MEAN CORPUSCULAR HGB CONC 33.6 % (32.0-36.0); MONO % 8.5 % (0.0-8.0); NEUT % 71.2 % (16.0-70.0); PLATELET COUNT 168 TH/MM3 (150-450); RED BLOOD COUNT 3.11 MIL/MM3 (4.50-5.90); RED CELL DISTRIBUTION WIDTH 17.6 % (11.6-17.2)
[2016-08-14] MEDS ORDERED: SODIUM CHLOR 0.9% 250 ML INJ 250 ML IV ONE (08:00)
[2016-08-14] MEDS: SODIUM CHLORIDE 0.9% FLUSH 5 ML FLUSH IVF SCH (09:00)
[2016-08-14] MEDS: DOCUSATE SODIUM 100 MG CAP PO SCH (09:28)
[2016-08-14] MEDS: MULTIVITAMINS/MINERALS THERAPEUTIC TAB PO SCH (09:28)
[2016-08-14] MEDS: MAGNESIUM HYDROXIDE SUSP 30 ML CUP PO PRN (09:29)
[2016-08-14] MEDS: cloNIDine HCL 0.2 MG TAB PO SCH (09:29)
[2016-08-14] MEDS: SODIUM CHLOR 0.9% 1000 ML INJ 1,000 ML IV SCH (10:49)
--- NOTE | 2016-08-14 13:10 | HHI.PR ---
Subjective Remarks Follow up anemia. The patient has no complaints at this time. Denies dyspnea, chest pain, lightheadedness, dizziness, nausea, vomiting. Objective Vitals Vital Signs Date Time Temp Pulse Resp B/P Pulse Ox O2 Delivery O2 Flow Rate FiO2 08/14/16 09:33 60 08/14/16 08:00 98.7 63 16 187/90 100 08/14/16 04:23 97.9 70 20 174/90 94 08/14/16 00:28 98.6 62 20 123/63 95 08/13/16 20:26 96.3 63 21 165/77 94 08/13/16 20:13 21 08/13/16 16:00 97.9 56 20 153/72 97 I/O 08/13/16 08/13/16 08/13/16 08/14/16 08/14/16 08/14/16 07:00 15:00 23:00 07:00 15:00 23:00 Intake Total 240 ml 240 ml 360 ml 360 ml Balance 240 ml 240 ml 360 ml 360 ml Intake Oral 240 ml 240 ml 360 ml 360 ml # Voids 1 1 1 1 # Bowel Movements 0 0 0 Result Diagram: 08/14/16 0531 08/14/16 0531 Imaging Last Impressions Chest X-Ray 08/10/16 1024 Signed Impressions: Service Date/Time: Wednesday, August 10, 2016 11:06 - CONCLUSION: Thoracic stent graft in good position, otherwise negative. Deniz Mccann MD FACR Hip and Pelvis X-Ray 08/10/16 0000 Signed Impressions: Service Date/Time: Wednesday, August 10, 2016 11:06 - CONCLUSION: Basal cervical fracture right femoral neck. Deniz Mccann MD FACR Hip X-Ray 08/10/16 0000 Signed Impressions: Service Date/Time: Wednesday, August 10, 2016 19:48 - CONCLUSION: 1. Postoperative right total hip replacement. Robby Yo MD Objective Remarks General: Elderly male in no acute distress. Heart: Regular rate and rhythm. No murmur. Lungs: Clear to auscultation bilaterally. No wheezes, rales, or rhonchi. Breathing is nonlabored. Abdomen: Soft, nontender, nondistended. Extremities: No lower extremity edema. Psych: Alert and oriented. Procedures 08/10/16 right bipolar hip arthroplasty Urinary Catheter: No Vascular Central Line Catheter: No A/P Problem List: (1) Fracture of femoral neck, right ICD Code: S72.001A Status: Acute (2) Hypertension ICD Code: I10 Status: Chronic (3) Anemia ICD Code: D64.9 Status: Acute (4) Acute kidney injury ICD Code: N17.9 Status: Acute Assessment and Plan 1. Right femoral neck fracture: Status post right hip arthroplasty, POD #4. Appreciate orthopedic surgery management. Continue pain control, bowel regimen, physical therapy. 2. Postoperative anemia, likely secondary to blood loss: Monitor H&H. Transfuse 1 unit PRBCs today. 3. Acute kidney injury: Start IV fluids. Monitor BUN and creatinine. 4. Fever: Resolved. No other apparent signs of infection at this time. 5. DVT prophylaxis: Lovenox. Discharge Planning OK to discharge to SNF after transfusion. Gaurang Russell MD Aug 14, 2016 13:10
--- NOTE | 2016-08-14 13:38 | HHI.DS ---
Discharge Summary Admission Date Aug 10, 2016 at 13:06 Discharge Date: Aug 14, 2016 Admitting Diagnosis hip fracture (1) Fracture of femoral neck, right ICD Code: S72.001A (2) Hypertension ICD Code: I10 (3) Anemia ICD Code: D64.9 (4) Acute kidney injury ICD Code: N17.9 Procedures 08/10/16 right bipolar hip arthroplasty Brief History - From Admission 76 years old male who presented to the ED complaining of right hip pain, which be reported by the that patient around 4 in the morning was let and fail in the kitchen while he was trying to go and get some water. Patient was unable to get up or walk. He had to drag himself to the bedroom. Patient continues to have a new so 911 was called patient brought to the ED. Orthopedic was consulted patient went to or , his blood pressure was uncontrolled at the presentation mostly he did not take his morning medication. I saw the patient post op he was doing well, stated and is tolerable, denied any chest pain short of breath, nausea vomiting, abdominal pain diarrhea constipation prior to presentation to the hospital. CBC/BMP: 08/14/16 0531 08/14/16 0531 Significant Findings Laboratory Tests Test 08/12/16 08/13/16 08/13/16 08/13/16 07:25 05:35 10:04 17:03 Hemoglobin 9.0 GM/DL 8.4 GM/DL 9.3 GM/DL (13.0-17.0) (13.0-17.0) (13.0-17.0) Hematocrit 26.1 % 25.3 % 28.1 % (39.0-51.0) (39.0-51.0) (39.0-51.0) Blood Urea Nitrogen 33 MG/DL (7-18) Creatinine 1.68 MG/DL (0.60-1.30) Estimat Glomerular Filtration 49 ML/MIN (>89) Rate Test 08/14/16 05:31 Red Blood Count 3.11 MIL/MM3 (4.50-5.90) Hemoglobin 7.9 GM/DL (13.0-17.0) Hematocrit 23.7 % (39.0-51.0) Mean Corpuscular Volume 76.0 FL (80.0-100.0) Mean Corpuscular Hemoglobin 25.5 PG (27.0-34.0) Red Cell Distribution Width 17.6 % (11.6-17.2) Neutrophils (%) (Auto) 71.2 % (16.0-70.0) Monocytes (%) (Auto) 8.5 % (0.0-8.0) Lymphocytes # (Auto) 0.8 TH/MM3 (1.0-4.8) Chloride Level 108 MEQ/L (98-107) Blood Urea Nitrogen 20 MG/DL (7-18) Estimat Glomerular Filtration 67 ML/MIN (>89) Rate Random Glucose 111 MG/DL (74-106) Imaging Last Impressions Chest X-Ray 08/10/16 1024 Signed Impressions: Service Date/Time: Wednesday, August 10, 2016 11:06 - CONCLUSION: Thoracic stent graft in good position, otherwise negative. Deniz Mccann MD FACR Hip and Pelvis X-Ray 08/10/16 0000 Signed Impressions: Service Date/Time: Wednesday, August 10, 2016 11:06 - CONCLUSION: Basal cervical fracture right femoral neck. Deniz Mccann MD FACR Hip X-Ray 08/10/16 0000 Signed Impressions: Service Date/Time: Wednesday, August 10, 2016 19:48 - CONCLUSION: 1. Postoperative right total hip replacement. Robby Yo MD PE at Discharge General: Elderly male in no acute distress. Heart: Regular rate and rhythm. No murmur. Lungs: Clear to auscultation bilaterally. No wheezes, rales, or rhonchi. Breathing is nonlabored. Abdomen: Soft, nontender, nondistended. Extremities: No lower extremity edema. Psych: Alert and oriented. Hospital Course The patient was admitted for management of right femoral neck fracture following a fall. Orthopedic surgery was consulted. Right bipolar hip arthroplasty was done on 08/10/16. Routine postoperative care was continued including physical therapy, pain control, bowel regimen. Patient developed postoperative anemia. H&H were monitored closely. Hemoglobin continued to decrease and decision was made to transfuse 1 unit PRBCs. Patient was cleared for discharge by orthopedic surgery. He was felt to be stable for discharge to SNF following the transfusion. Pt Condition on Discharge: Stable Discharge Disposition: Discharge to SNF Discharge Time: > 30 minutes Discharge Instructions DIET: Follow Instructions for: As Tolerated, No Restrictions, High Fiber Diet Activities you can perform: Weight Bearing as Kaden Activities to Avoid: Lifting/Bending Follow up Referrals: Orthopedics - 3 Weeks @ [facility] with Estrada Nina MD New Orders: HGB & HCT - Next Day New Medications: 3-in-1 Bedside Toilet (3-in-1 Bedside Toilet) 1 Mis Mis 1 EA .ROUTE DIRECTED #1 EA Walker with Front Wheels (Walker with Front Wheels) 1 Mis Mis 1 EA .ROUTE DIRECTED #1 Ref 0 EA Enoxaparin Inj (Lovenox Inj) 40 Mg/0.4 Ml Syr 40 MG SQ Q24H Prevent Blood Clot #20 INJECTION Hydrocodone-Acetaminophen (Hydrocodone-Acetaminophen) 5-325 mg Tab 1 TAB PO Q4H PRN PAIN LESS THAN 5 ON SCALE #30 TAB Continued Medications: Amlodipine (Norvasc) 10 Mg Tab 10 MG PO DAILY Blood Pressure Management #30 Ref 0 TAB Clonidine (Clonidine) 0.2 Mg Tab 0.2 MG PO BID Blood Pressure Management #60 Ref 0 TAB Losartan (Cozaar) 50 Mg Tab 50 MG PO DAILY Blood Pressure Management #30 Ref 0 TAB Nitroglycerin SL (Nitroglycerin SL) 0.4 Mg Subl 0.4 MG SL DIRECTED ONE TABLET UNDER THE TONGUE NEEDED FOR CHEST PAIN, MAY REPEAT EVERY FIVE MINUTES FOR A TOTAL OF 3 DOSES OR CALL 911 IF NO RELIEF PRN CHEST PAIN #100 Ref 0 TAB.SL Sennosides-Docusate Sodium (Senna-Docusate Sodium) 8.6-50 Mg Tab 1 TAB PO BID Constipation Ref 0 TAB Discontinued Medications: Hydrocodone-Acetaminophen (Lortab) 5-325 Mg Tab 1 TAB PO Q4H PRN PAIN Ref 0 TAB Gaurang Russell MD Aug 14, 2016 13:38
[2016-08-14] MEDS: ENOXAPARIN SODIUM 40 MG/0.4 ML SYRINGE SQ SCH (16:34)
--- NOTE | 2016-08-14 18:22 | PQ ---
Physician Query Response Document PATIENT: AIDA LARKIN : 1940 ADMIT DATE: 08/10/2016 1:06 PM DISCH DATE: RESPONDING PROVIDER #: [email or web address] QUERY TEXT: Clinical Validity Additional clinical indicators are required to support your documented diagnosis of Please respond and also state in your next progress note whether: -- Condition exists and also please provide clinical indicators to support the diagnosis -- Condition does not exist and also please provide amended documentation in the medical record to aminta doan -- Unable to provide additional clarity regarding the diagnosis -- Other, please specify The patient's Clinical Indicators include: I MECCA versus CKD: Creatinine decreased from 1.56-1.47 Hold losartan, avoid nephrotoxins, continue iv fluid, monitor BMP GFR 67 Query created by: Rhonda Craft on 08/14/2016 2:49 PM RESPONSE TEXT: Provider disagreed with this CDI query. I have documented acute kidney injury in my notes. QUERY TEXT: Anemia Type Anemia is documented in the Medical Record. Please specify the cause (includes suspected or probable cause) Such as: -- Due to acute blood loss -- Due to chronic blood loss -- Due to iron deficiency -- Due to postoperative blood loss -- Due to chronic disease -- Other, please specify The patient's Clinical Indicators include: Prior to surgery H Query created by: Rhonda Craft on 08/14/2016 3:08 PM RESPONSE TEXT: Provider disagreed with this CDI query. I have documented this in my notes. Electronically signed by: Gaurang Russell MD 08/14/2016 6:18 PM
== END 2016-08-14 18:41 | DRG 470 ==
LOC: NEPE 09:39 → NEDA 13:06 → HPAC 15:39 → N06A 21:33
PROVIDERS: ADMIT Family Medicine; ATTEND Family Medicine
PROC: 0SRR0JZ Replacement of Right Hip Joint, Femoral Surface with Synthetic Substitute, Open Approach (ICD-10-PCS; principal; 2016-08-10 17:32)
PROC: 30233N1 Transfusion of Nonautologous Red Blood Cells into Peripheral Vein, Percutaneous Approach (ICD-10-PCS; 2016-08-14)
DX: S72.001A Fracture of unspecified part of neck of right femur, initial encounter for closed fracture (principal); N17.9 Acute kidney failure, unspecified; D57.3 Sickle-cell trait; D50.0 Iron deficiency anemia secondary to blood loss (chronic); D64.9 Anemia, unspecified; I10 Essential (primary) hypertension; N18.9 Chronic kidney disease, unspecified; R50.82 Postprocedural fever; M19.90 Unspecified osteoarthritis, unspecified site; F17.200 Nicotine dependence, unspecified, uncomplicated; W01.0XXA Fall on same level from slipping, tripping and stumbling without subsequent striking against object, initial encounter; Y92.000 Kitchen of unspecified non-institutional (private) residence as the place of occurrence of the external cause; Z88.0 Allergy status to penicillin; Z88.6 Allergy status to analgesic agent; Z91.81 History of falling
CPT/HCPCS: 36430; 71010; 73501; 73502; 80048; 81001; 82550; 82552; 83735; 84484; 85014; 85018; 85025; 85610; 85730; 86077; 86850; 86870; 86900; 86901; 86920; 86922; 93005; 96374; 96375; 96376; C1776; J1580; J1650; J2270; J2370; J2405; J3010; J3370; J7030; J7050; J7120; P9016